=== PATIENT | male | born 1945 | race Caucasian/White ===

== ENCOUNTER 2018-06-20 10:00 | Day surgery (SDC) | payer MEDICARE ==
[~2018-06-20] VITALS: Ht 177.8 cm; Wt 99.8 kg
[~2018-06-20 10:00] MED LIST: ASPIRIN EC81 M1 PO; LISINOPRIL20 MG PO; MULTI-DAY VITAM1 TAB PO; ZOCOR20 MG PO
[2018-06-20 10:38] VITALS: BP 136/79; Ht 177.8 cm; Wt 99.8 kg
[2018-06-20 12:28] LABS: HEMATOCRIT 42.5 % (42.0-54.0); MCH 33.4 pg (26.0-34.0); MCHC 35.3 g/dL (31.0-37.0); MCV 94.7 fL (80.0-100.0); MEAN PLATELET VOLUME 9.8 fL (7.4-10.4); RBC 4.49 10x6/uL (4.20-6.10); RDW 12.7 % (11.5-14.5); WBC 8.2 10x3/uL (4.8-10.8)
[2018-06-20] MEDS ORDERED: HYDROCODON-ACE1 EAC7 PO (13:28)
--- NOTE | 2018-06-20 16:47 | OP ---
PATIENT NAME: PAMELA GHOSH MEDICAL RECORD: [id number] :45 LOCATION:[facility] ADMISSION DATE: SURGEON: RONAL CHEEK DO DATE OF OPERATION: 06/20/2018 PROCEDURE PERFORMED: Left knee arthroscopy with partial medial meniscectomy. PREOPERATIVE DIAGNOSIS: Left knee medial meniscal tear. 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 INDICATIONS: Mr. Ghosh is a 72-year-old male that presented to my office and saw my nurse practitioner with left knee pain that he had it for some time. He tried injections from his primary care, which did not help. He got an MRI, which did not show much arthritis at all especially for man of this age and that did show a medial meniscal tear in the posterior horn. This was discussed with him that we could trim it out and hopefully resolve the symptoms of catching, locking, popping and pain over the medial joint line. He was okay with that and knew that if he did have some arthritis and that we could not do anything about the knee scope. He is aware also of the risks of infection, bleeding, damage to nerve or vessels, need for further surgery. He signed the consent. SURGEON: Ronal Cheek DO DESCRIPTION OF PROCEDURE: The patient was taken to the operative suite, laid in supine position. Left lower extremity was prepped and draped in sterile fashion. He was given general anesthetic and LMA was placed. He was given 2 grams Ancef preoperatively. Timeout was performed. everyone was in agreement as to the correct side, site, patient and procedure. Once the left lower extremity was prepped and draped in a sterile fashion, the incision began over the lateral anterior portal after the side being injected with 3 mL of 0.25% Marcaine with epinephrine there and over the medial portal site. The lateral portal was established with an 11-blade scalpel. Trocar was then entered in the knee. The suprapatellar pouch was inspected. No loose body was seen at the lateral gutter or the medial gutter. The knee was then brought from extension to flexion, the medial compartment was entered and a medial portal was established with an 18-gauge spinal needle and an 11-blade scalpel. Then, a probe was brought in. The knee was brought to extension with a valgus stress and the medial meniscus was exposed seeing a very degenerative tear in the posterior horn of the medial meniscus. This was chewed out with a biter and shaver back to a stable position. Once this was back to stable position, the cartilage was inspected and the femur was indeed seen to have some fissuring which to be grade II chondromalacia. The ACL was then checked and seen to be in good repair. There was no laxity seen. The lateral compartment of the knee was then inspected with the knee [id number] and no tears were seen in the menisci and the cartilage appeared to be intact. There was no fissuring. The suction was then turned on. The water was turned off and excess fluid was removed from the knee and the scope was removed from the knee. The portal sites were then closed with 4-0 Monocryl in inverted interrupted fashion. Steri-Strips then placed over that. Adaptic, 4 x 4s, ABD, Webril, Zion wrap and MARJ hose stocking was placed up to the knee. The patient was taken to recovery in stable condition. Blood loss was minimal. COMPLICATIONS: None. OPERATIVE REPORT [id number] PAMELA GHOSH TRANSALISSA:[id number] Voice Confirmation ID: [id number] DOCUMENT ID: [id number] RONAL CHEEK DO at 1647 CC: [id number] DICTATION DATE: 06/20/18 1332 [employer] M[employer] OPERATOR: 06/20/18 1412 [facility] 06/20/18 [place] [id number] [place] [id number]
== END 2018-06-20 15:15 | disposition home or self-care (01) ==
LOC: D.OPS 10:00 → D.PAN 12:00 → D.OPS 12:30
PROVIDERS: Anesthesiology; ATTEND Orthopaedic Surgery
DX: S83.242A Other tear of medial meniscus, current injury, left knee, initial encounter (principal); M94.262 Chondromalacia, left knee; Z01.812 Encounter for preprocedural laboratory examination; X58.XXXA Exposure to other specified factors, initial encounter